=== PATIENT | male | born 1945 | race Caucasian/White ===

== ENCOUNTER 2020-07-04 14:16 | Emergency (ER) | payer OTHER, BC ==
[~2020-07-04] VITALS: Ht 180.3 cm; Wt 122.0 kg
--- NOTE | ~2020-07-04 | EMS ---
[address] [address] EMS Patient Care Report Name: VIRGINIE ELI Room #: PRE M.R.#: [id number] Admission: Attend Phys: Discharge: Date of : 41 Report #: [id number] THIS REPORT FOR: //name// Report Transmitted: 07/04/2020 14:11 EMS Care Summary [facility] MED-ACT Incident [id number] @ 07/04/2020 13:40 Incident Location [address] [place] [address] Patient VIRGINIE ELI Male, 75 Years 1945 Patient Address [address] [place] [address] Patient History Cancer, Unspecified, Patient Allergies No known allergies, Patient Medications Spironolactone, Xarelto, Metoprolol, Atorvastatin, Chief Complaint "he's not acting right" Disposition Transported No Lights/[place] Dispatch Reason Falls Transported To [facility] Narrative EMS dispatched to a local residence. Upon arrival, EMS is greeted at the front door by the patient's family member who leads EMS/Fire to the patient's bedroom. The patient is found on the floor in the seated position at the end of his bed. The patient is tracking with no audible breath sounds or visible [address] [address] EMS Patient Care Report Name: VIRGINIE ELI Room #: PRE FAY Cruz#: [id number] Admission: Attend Phys: Discharge: Date of : 41 Report #: [id number] bleeding. However, the patient is visibly incontinent to urine. The patient's relays this morning about 0030 the patient had a witnessed fall to the ground on his carpet. She relays he wasn't injured from the fall. However, she was unable to get him up. At that time, she noticed he was incontinent to urine. She admits to changing him "multiple times" throughout the night. She also states "he's just not there, he's not his normal self". When speaking to the patient he is alert and oriented. However, he has periods of distraction where he will quit talking, stare off and when asked to finish his sentence he's unsure of what he was saying. The patient relays "nothing is wrong" but when asked what happened last night he's unable to recall the events through the night. Also, when asked what's concerning/bothering him he relays "you". The relays that's abnormal for his behavior. Initial assessment is performed on pt with vitals, EKG and Bg check. The patient is lifted to his walker and moved to the cot where secured. A stroke scale is performed on pt (negative) and moved to MICU where secured. Secondary assessment is performed on pt with vitals, 12lead, and continuous assessment. It's noted en route that the patient has repetitive movements like pill rolling, yawning, rolling his ankles bilaterally. This information is relayed to [facility]. It's also noted that from previous experience this is typical of something neurological. However, the pt is still negative on the stroke scale. Report is given multiple times to , and multiple RN's. Once the patient is moved over to hospital bed, the patient does dry heave multiple times. Initial Vitals @13:47P: 132,SpO2: 93,TN Suspected: false @13:58P: 120,TN Suspected: false @14:01P: 120,R: 16,BP: 152/94,GCS: 15,SpO2: 94,Revised Trauma: 12,TN Suspected: false @14:08P: 113,R: 16,BP: 145/95,Pain: 0/10,GCS: 15,SpO2: 99,Revised Trauma: 12,TN Suspected: false @13:46P: 120,R: 16,BP: 124/70,Pain: 0/10,GCS: 15,Glucose: 222,SpO2: 94,Revised Trauma: 12,TN Suspected: false Assessments @13:50MENTAL:Other,Person Oriented,Place Oriented,Event Oriented,Time Oriented,SKIN:Diaphoresis,Pale,HEENT:Head/Face: No Abnormalities,LUNG SOUNDS:General: No Abnormalities,ABDOMEN:General: No Abnormalities,PELVIS//GI:No Abnormalities,EXTREMITIES:Left Arm: No Abnormalities,Right Arm: No Abnormalities,Left Leg: No Abnormalities,Right Leg: No Abnormalities,PULSE:NEURO:Other,@14:10 Impression Urinary Tract Infection (UTI) [address] [address] EMS Patient Care Report Name: VIRGINIE ELI Room #: PRE FAY Cruz#: [id number] Admission: Attend Phys: Discharge: Date of : 41 Report #: [id number] Procedures @13:5812-Lead ECGResponse: UnchangedSucceeded@13:56Normal Saline (.9% NaCl) 300cc (20 ga) Site: Antecubital-RightResponse: UnchangedSucceeded Timeline 13:38,Call Received 13:38,Psap Call 13:40,Dispatched 13:41,En Route 13:44,On Scene 13:45,At Patient 13:46,BP: 124/70 M,PULSE: 120,RR: 16 R,SPO2: 94 Ox,ETCO2: ,B,PAIN: 0,GCS: 15, 13:47,BP: / M,PULSE: 132,RR: R,SPO2: 93 Ox,ETCO2: ,BG: ,PAIN: ,GCS: , 13:56,Normal Saline (.9% NaCl) 300cc 20 ga Site: Antecubital-Right,Response: UnchangedSucceeded, 13:58,12-Lead ECG,Response: UnchangedSucceeded, 13:58,BP: / M,PULSE: 120,RR: R,SPO2: Ox,ETCO2: ,BG: ,PAIN: ,GCS: , 14:00,Depart Scene 14:01,BP: 152/94 M,PULSE: 120,RR: 16 R,SPO2: 94 Ox,ETCO2: ,BG: ,PAIN: ,GCS: 15, 14:08,BP: 145/95 M,PULSE: 113,RR: 16 R,SPO2: 99 Ox,ETCO2: ,BG: ,PAIN: 0,GCS: 15, 14:11,At Destination 14:55,Call Closed Disclaimer [email or web address] Copyright 2020 [employer] This EMS Care Summary contains data elements from the applicable legal record (which may be displayed differently). It is designed to provide pertinent information for the following purposes: continuity of care, clinical quality, and state data reporting. The complete legal record is available to ED staff and administrators of the receiving hospital in [employer] Patient Tracker. All data is provided "as is."
[2020-07-04 14:35] LABS: BASOPHILS 0.5 % (0.0-2.0); HEMOGLOBIN 11.6 gm/dL (14.0-18.0); LYMPHOCYTES 6.3 % (24.0-44.0); MCH 25.6 pg (26.0-34.0); MCHC 31.2 g/dL (28.0-37.0); MCV 82.1 fL (80.0-100.0); MONOCYTES 6.1 % (1.0-8.0); PLATELET COUNT 180 thou/uL (150-400); POLYS 87.1 % (36.0-66.0); RBC 4.51 mil/uL (4.50-6.00); RDW 19.1 % (10.5-14.5); WBC 11.5 thou/uL (4.0-11.0)
[2020-07-04 14:45] LABS: ANION GAP 15 mmol/L (7-16); BUN 11 mg/dL (7-18); CALCIUM 6.1 mg/dL (8.5-10.1); CHLORIDE 116 mmol/L (98-107); CO2 14 mmol/L (21-32); CREATININE 0.8 mg/dL (0.7-1.3); GLUCOSE 178 mg/dL (74-106); POTASSIUM 3.5 mmol/L (3.5-5.1); SODIUM 145 mmol/L (136-145)
[2020-07-04 14:52] LABS: ALBUMIN 2.2 g/dL (3.4-5.0); DIRECT BILIRUBIN < 0.1 mg/dL (<0.1-0.2); MAGNESIUM 1.4 mg/dL (1.8-2.4); SGOT 47 U/L (15-37); SGPT 30 U/L (30-65); TOTAL BILIRUBIN 0.6 mg/dL (0.2-1.0); TOTAL PROTEIN 4.4 g/dL (6.4-8.2)
[2020-07-04 14:57] LABS: ANISOCYTOSIS 2+; OVALOCYTES OCCASIONAL
[2020-07-04 14:58] LABS: POLYCHROMASIA OCCASIONAL
[2020-07-04 14:59] LABS: MACROCYTES FEW; MICROCYTES FEW; POIKILOCYTOSIS SLIGHT
[2020-07-04 15:49] LABS: URINE BILIRUBIN NEGATIVE (Negative); URINE BLOOD TRACE (Negative); URINE CLARITY CLEAR; URINE COLOR YELLOW; URINE GLUCOSE-RANDOM* 3+ (Negative); URINE KETONES 1+ (Negative); URINE LEUKOCYTES-REFLEX NEGATIVE (Negative); URINE NITRITE-REFLEX NEGATIVE (Negative); URINE PROTEIN (DIPSTICK) NEGATIVE (Negative); URINE SPECIFIC GRAVITY 1.015 (1.005-1.035); URINE UROBILINOGEN 0.2 E.U./dl (0.2-1.0)
[2020-07-04 16:50] LABS: APTT 25.7 Seconds (24.5-32.8); INR 1.1; PROTIME 11.4 Seconds (9.3-11.4)
[2020-07-04] MEDS ORDERED: TOPROL XL25 MG PO (17:57)
[2020-07-04] MEDS ORDERED: ASA81BEC PO (17:57)
[2020-07-04] MEDS ORDERED: LIPITOR40 MG PO (17:57)
[2020-07-04] MEDS ORDERED: XARELTO20 MG PO (17:57)
[2020-07-04 17:58] VITALS: BP 168/106
--- NOTE | 2020-07-05 08:21 | EKG ---
[facility] [place] [address] ELECTROCARDIOGRAM REPORT Name: VIRGINIE ELI Room #: DEP M.#: [id number] Admission: 07/04/20 Attend Phys: Discharge: 07/04/20 Date of : 41 Report #: [id number] THIS REPORT FOR: cc: Rommel Romero MD, Bernard O. MD Lundgren,Willy Vega MD [facility] ~ THIS REPORT FOR: //name// [facility] ED Test Date: 2020-07-04 Test Time: 14:26:20 Pat Name: VIRGINIE ELI Department: Room: Gender: [employer] Vehicle Operator: [facility] : 1945 Requested By: Syeda Raymundo Order Number: [id number] MD: Willy Little Measurements Intervals [place] Rate: 120 P: 34 DC: 156 QRS: -36 QRSD: 88 T: 74 QT: 320 QTc: 453 Interpretive Statements Sinus tachycardia Atrial premature complex Left axis deviation Abnormal R-wave progression, late transition No previous ECG available for comparison D Electronically Signed On 07-05-2020 8:21:44 CDT by Willy Little [email or web address] <ELECTRONICALLY SIGNED> By: Willy Little MD, [facility] 07/05/20 0821 1426 1426 Willy Little MD, [facility] /EPI
== END 2020-07-04 17:58 | disposition short-term general hospital (02) ==
LOC: ER 14:16
PROVIDERS: Emergency Medicine
DX: I62.9 Nontraumatic intracranial hemorrhage, unspecified (principal); Z91.041 Radiographic dye allergy status